=== PATIENT | female | born 2000 ===

== ENCOUNTER 2022-08-28 19:55 | Emergency (ER) | payer MEDICAID ==
--- NOTE | 2022-08-28 20:06 | ED Lower Extremity ---
General Stated Complaint: FELL AND TWISTED LEFT ANKLE, SWOLLEN History of Present Illness Date Seen by Provider: Aug 28, 2022 Time Seen by Provider: 20:06 Initial Comments 22-year-old female presents with left ankle injury. Patient reports that she stepped down off of her couch about an hour ago and rolled her left ankle. Patient is able to bear weight but it hurts. She has pain mainly on the lateral aspect with some swelling. She denies any other injury Allergies and Home Medications Patient Home Medication List Home Medication List Reviewed: Yes Review of Systems Constitutional: no symptoms reported EENTM: no symptoms reported Respiratory: no symptoms reported Cardiovascular: no symptoms reported Gastrointestinal: no symptoms reported Genitourinary: no symptoms reported Musculoskeletal: see HPI Skin: see HPI Physical Exam Vital Signs Capillary Refill : Height, Weight, BMI Height: '" Weight: lbs. oz. kg; BMI Method: General Appearance: WD/WN, no apparent distress Cardiovascular: normal peripheral pulses, regular rate, rhythm Respiratory: chest non-tender, lungs clear Gastrointestinal: non tender Hips: bilateral hip non-tender Legs: bilateral leg non-tender Knees: bilateral knee non-tender Ankles: left ankle limited range of motion, left ankle soft tissue tenderness, left ankle swelling Feet: bilateral foot non-tender Neurologic/Psychiatric: alert, normal mood/affect, oriented x 3 Skin: normal color, warm/dry Progress/Results/Core Measures Results/Orders My Orders Orders - RAVINDRA GONZALEZ DO Ankle 3 View Left (08/28/22 20:09) Gel Ankle Brace (08/28/22 20:30) Progress Progress Note : Progress Note Patient x-ray was ordered reviewed and initially interpreted by me with final interpretation per radiology report. Patient with no acute fracture or dislocation noted. Patient was placed in an air stirrup. Patient was stable and discharged home Departure Impression Primary Impression: Inversion sprain of left ankle Qualified Codes: S93.402A - Sprain of unspecified ligament of left ankle, initial encounter Disposition: 01 HOME, SELF-CARE Condition: Stable Departure-Patient Inst. Patient Instructions: Ankle Sprain ED, Using Cold for Pain Add. Discharge Instructions: Ice for 10 to 15 minutes at a time 3-4 times daily for 24 hours then ice or warm moist heat. Tylenol or ibuprofen as needed for discomfort. Follow-up with your primary care provider in 7 to 10 days if symptoms or not improving RAVINDRA GONZALEZ DO Aug 28, 2022 20:06
[2022-08-28 20:40] VITALS: BP 116/70
--- NOTE | 2022-08-28 21:10 | Diagnostic Imaging Report ---
INDICATION: Injury, pain. FINDINGS: Three-view left ankle performed. No fracture, dislocation, or disruption to the ankle mortise. IMPRESSION: No acute appearing abnormality. Dictated by: Dictated on workstation # [id number]
== END 2022-08-28 20:40 | disposition home or self-care (01) ==
LOC: EDUNIT# 19:55 → ER FS 19:59
DX: S93.402A Sprain of unspecified ligament of left ankle, initial encounter (principal); Z28.310 Unvaccinated for COVID-19; W18.31XA Fall on same level due to stepping on an object, initial encounter; X50.1XXA Overexertion from prolonged static or awkward postures, initial encounter
CPT/HCPCS: 73610